=== PATIENT | male | born 1990 | race Two or more races ===

== ENCOUNTER 2016-07-17 15:00 | Emergency (ER) | payer BC ==
[2016-07-17 15:05] VITALS: BP 125/70
--- NOTE | 2016-07-17 15:05 | ER Document Report ---
ED Medical Screen (RME) - General Stated Complaint: SUTURE REMOVAL Notes: pt here for suture removal to right upper lip TRAVEL OUTSIDE OF THE [place] IN LAST 30 DAYS: No - Related Data Allergies/Adverse Reactions: No Known Allergies Allergy (Verified 07/17/16 15:03) Past Medical History Psychiatric Medical History: Reports: Hx Depression Past Surgical History: Reports: Hx Orthopedic Surgery - Immunizations Hx Diphtheria, Pertussis, Tetanus Vaccination: Yes Physical Exam - Skin Skin irregularity: Laceration - sutured lac to right upper lip
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
== END 2016-07-17 15:29 | disposition home or self-care (01) ==
LOC: ER 15:00
DX: Z48.02 Encounter for removal of sutures (principal)

== ENCOUNTER 2016-07-20 18:35 | Inpatient (IN) | payer OTHER, BC ==
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
[2016-07-20 20:21] LABS: ABSOLUTE EOSINOPHILS # (AUTO) 0.1 10^3/uL (0.0-0.6); ABSOLUTE LYMPHOCYTES (AUTO) 2.2 10^3/uL (0.5-4.7); ABSOLUTE MONOCYTES (AUTO) 0.8 10^3/uL (0.1-1.4); ABSOLUTE NEUT (AUTO) 13.2 10^3/uL (1.7-8.2); BASOPHILS % (AUTO) 0.1 % (0-2); EOSINOPHILS % (AUTO) 0.4 % (0-6); HEMOGLOBIN 13.8 g/dL (13.5-17.0); HGB HCT DIFFERENCE -0.6; LYMPHOCYTES % (AUTO) 13.4 % (13-45); MEAN CORPUSCULAR HEMOGLOBIN 29.4 pg (27.0-33.4); MEAN CORPUSCULAR VOLUME 89 fl (80-97); MONOCYTES % (AUTO) 4.8 % (3-13); RED CELL DISTRIBUTION WIDTH 14.4 % (11.5-14.0); SEGMENTED NEUTROPHILS % (AUTO) 81.3 % (42-78); WHITE BLOOD COUNT 16.2 10^3/uL (4.0-10.5)
[2016-07-20 20:56] LABS: ALCOHOL 174 mg/dL (NONE DETECTED); ANION GAP 14 (5-19); BLOOD UREA NITROGEN 10 mg/dL (7-20); CALCIUM 9.3 mg/dL (8.4-10.2); CARBON DIOXIDE 27 mmol/L (22-30); CHLORIDE 106 mmol/L (98-107); CREATININE RESULT 1.04 mg/dL (0.52-1.25); GLUCOSE 111 mg/dL (75-110); POTASSIUM 3.8 mmol/L (3.6-5.0); SODIUM 146.5 mmol/L (137-145)
[2016-07-20 21:14] LABS: APPEARANCE,URINE SLIGHTLY-CLOUDY; BILIRUBIN,URINE NEGATIVE (NEGATIVE); GLUCOSE, URINE NEGATIVE (NEGATIVE); KETONES,URINE NEGATIVE (NEGATIVE); LEUKOCYTE ESTERASE,URINE TRACE (NEGATIVE); NITRITE,URINE NEGATIVE (NEGATIVE); PROTEIN,URINE 100 mg/dL (NEGATIVE); UROBILINOGEN,URINE NEGATIVE mg/dL (<2.0)
[2016-07-20 21:15] LABS: URINE SPECIFIC GRAVITY > 1.060
[2016-07-20 21:27] LABS: URINE BARBITURATES SCREEN NEGATIVE; URINE METHADONE SCREEN NEGATIVE; URINE PHENCYCLIDINE SCREEN NEGATIVE
[2016-07-20] MEDS ORDERED: MORPHINE SULFATE 10 MG/ML INJ ONE (21:27)
[2016-07-20] MEDS ORDERED: ONDANSETRON HCL INJ/PF 4 MG/2 ML SDV ONE (21:28)
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
[2016-07-20] MEDS ORDERED: ONDANSETRON HCL INJ/PF 4 MG/2 ML SDV IV PRN (23:00)
[2016-07-20] MEDS ORDERED: RINGERS SOLUTION,LACTATED 1,000 ML IV ONE (23:05)
[2016-07-20] MEDS ORDERED: NORMAL SALINE 1000 ML 1,000 ML IV ONE (23:50)
[2016-07-21] MEDS: MORPHINE SULFATE 10 MG/ML INJ IV PRN ×6 (01:53→21:43)
[2016-07-21] MEDS: POTASSI CL 20 MEQ/D5-1/2NS 1L 1,000 ML IV PRN (05:45)
[2016-07-21] MEDS: ENOXAPARIN SODIUM INJ 40 MG/0.4 ML DISP.SYRIN SUBCUT SCH (07:38)
[2016-07-21 07:48] LABS: ANION GAP 13 (5-19); BLOOD UREA NITROGEN 13 mg/dL (7-20); CALCIUM 8.4 mg/dL (8.4-10.2); CARBON DIOXIDE 23 mmol/L (22-30); CHLORIDE 109 mmol/L (98-107); CREATININE RESULT 0.95 mg/dL (0.52-1.25); MAGNESIUM 1.4 mg/dL (1.6-2.3); PHOSPHORUS 4.3 mg/dL (2.5-4.5); POTASSIUM 4.3 mmol/L (3.6-5.0); SODIUM 144.7 mmol/L (137-145)
[2016-07-21 08:05] LABS: GLUCOSE 89 mg/dL (75-110)
[2016-07-21 08:09] LABS: HEMATOCRIT 36.4 % (37.9-51.0); HEMOGLOBIN 12.3 g/dL (13.5-17.0); HGB HCT DIFFERENCE 0.5; MEAN CORPUSCULAR HEMOGLOBIN 29.6 pg (27.0-33.4); MEAN CORPUSCULAR HGB CONC 33.8 g/dL (32.0-36.0); MEAN CORPUSCULAR VOLUME 88 fl (80-97); RED BLOOD COUNT 4.16 10^6/uL (4.35-5.55); RED CELL DISTRIBUTION WIDTH 14.5 % (11.5-14.0); WHITE BLOOD COUNT 16.8 10^3/uL (4.0-10.5)
[2016-07-21] MEDS: DOCUSATE SODIUM 100 MG CAPSULE PO SCH ×2 (09:01→17:19)
[2016-07-21] MEDS: OXYCODONE-ACETAMINOPHEN 5-325 MG TABLET PO PRN ×2 (11:21→17:19)
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
[2016-07-21] MEDS ORDERED: DIPHENHYDRAMINE HCL 25 MG CAPSULE PO PRN (17:01)
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
[2016-07-22] MEDS: POTASSI CL 20 MEQ/D5-1/2NS 1L 1,000 ML IV PRN (00:12)
[2016-07-22] MEDS: OXYCODONE-ACETAMINOPHEN 5-325 MG TABLET PO PRN ×4 (00:15→20:21)
[2016-07-22] MEDS: MORPHINE SULFATE 10 MG/ML INJ IV PRN ×3 (01:58→22:59)
--- NOTE | 2016-07-22 07:23 | PDOC PROGRESS REPORT ---
Subjective Progress Note for:: 07/22/16 Subjective:: Patient seen and evaluated this morning. No issues overnight. Continues to complain of left ankle pain and thumb pain. Physical Exam Vital Signs: Temp Pulse Resp BP Pulse Ox 100.0 F 107 H 18 131/60 H 93 07/22/16 00:32 07/22/16 02:00 07/22/16 00:32 07/22/16 00:32 07/22/16 00:32 Intake & Output 07/21/16 07/22/16 07/23/16 06:59 06:59 06:59 Intake Total 2575 Output Total 1800 Balance 775 Weight 80.9 kg 80.3 kg Musculoskeletal exam: PRESENT: other - Left thumb: Tenderness to palpation along the thumb CMC joint. Intact flexion extension of the IP joint. No sensory deficits. Left ankle: Notable swelling. Tenderness along the medial and lateral malleolus. Intact plantar flexion/dorsiflexion. No sensory deficits. Pelvis: Tenderness along the pubic symphysis along the coccyx. Pain with attempted straight leg raise. Bilateral lower extremities demonstrate no sensory deficits. Intact plantar flexion/dorsiflexion. Results Laboratory Results: 07/21/16 05:56 07/21/16 05:56 07/21/16 07/21/16 05:56 05:56 WBC 16.8 H RBC 4.16 L Hgb 12.3 L Hct 36.4 L MCV 88 MCH 29.6 MCHC 33.8 RDW 14.5 H Plt Count 168 Sodium 144.7 Potassium 4.3 Chloride 109 H Carbon Dioxide 23 Anion Gap 13 BUN 13 Creatinine 0.95 Est GFR ( Amer) > 60 Est GFR (Non-Af Amer) > 60 Glucose 89 Calcium 8.4 Phosphorus 4.3 Magnesium 1.4 L Impressions: Abdomen/Pelvis CT 07/20/16 18:40 IMPRESSION: There is soft tissue fullness in the presacral space most consistent with a hematoma. No bladder abnormalities are identified. A fracture of the coccyx is identified. A fracture involving the inferior pubic ramus on the right is identified. No other significant posttraumatic changes are identified. Other findings as noted above. Cervical Spine CT 07/20/16 18:40 IMPRESSION: NO ACUTE OR SIGNIFICANT FINDINGS IN THE CERVICAL SPINE. Chest CT 07/20/16 18:40 IMPRESSION: No significant intrathoracic posttraumatic changes are identified. Findings as noted above Chest X-Ray 07/20/16 18:40 IMPRESSION: NO ACUTE RADIOGRAPHIC FINDING IN THE CHEST. Head CT 07/20/16 18:40 IMPRESSION: No significant intracranial abnormalities were identified. A right frontal and right periorbital hematoma is identified. Other findings as noted above Pelvis X-Ray 07/20/16 18:41 IMPRESSION: Fracture of the inferior pubic ramus on the right is identified. No other evidence for fracture is seen Facial Bones CT 07/20/16 19:12 IMPRESSION: No evidence for fracture is seen. Paranasal sinuses are well- aerated without air-fluid levels. A right frontal and right periorbital hematoma is identified. Ankle X-Ray 07/21/16 00:00 IMPRESSION: Bimalleolar fracture is noted above Wrist X-Ray 07/21/16 00:00 IMPRESSION: Fracture of the proximal 1st metacarpal Assessment & Plan - Diagnosis (1) Smith's fracture of base of metacarpal bone of left thumb Qualifiers: Encounter type: initial encounter Fracture type: closed Qualified Code(s): S62.212A - Smith's fracture, left hand, initial encounter for closed fracture Is this a current diagnosis for this admission?: Yes (2) Bimalleolar ankle fracture Qualifiers: Encounter type: initial encounter Fracture type: closed Laterality : left Qualified Code(s): S82.842A - Displaced bimalleolar fracture of left lower leg, initial encounter for closed fracture Is this a current diagnosis for this admission?: YesPlan: Patient will be set up today for operative intervention of his left ankle which includes open reduction internal fixation. Patient will likely be set up for definitive treatment of his left thumb on an outpatient basis and will be stable for discharge tomorrow after operative fixation. We have discussed with the patient the alternatives for further care of this condition. They desire to proceed with surgical intervention. I explained to them the nature of the operation to be performed and the expected postoperative course. The possibility of complications is explained and these could involve anesthetic complications, excessive bleeding, infection, injury to surrounding nerves, vessels and tendons, bruising, healing difficulties, scar formation, posttraumatic arthritis and failure to relieve symptoms. The patient expresses the desire to proceed with the operation. (3) Fracture of right inferior pubic ramus Qualifiers: Encounter type: initial encounter Fracture type: closed Qualified Code(s): S32.591A - Other specified fracture of right pubis, initial encounter for closed fracture Is this a current diagnosis for this admission?: Yes (4) Fractured coccyx Qualifiers: Encounter type: initial encounter Fracture type: closed Qualified Code(s): S32.2XXA - Fracture of coccyx, initial encounter for closed fracture Is this a current diagnosis for this admission?: Yes
[2016-07-22] MEDS: ENOXAPARIN SODIUM INJ 40 MG/0.4 ML DISP.SYRIN SUBCUT SCH (07:32)
[2016-07-22] MEDS: DOCUSATE SODIUM 100 MG CAPSULE PO SCH ×2 (09:15→17:17)
--- NOTE | 2016-07-22 10:36 | PDOC PROGRESS REPORT ---
Subjective Progress Note for:: 07/22/16 Subjective:: Pain around the tailbone region and the pelvic pain as well as the left ankle and the left hand pain. No shortness of breath. No abdominal pain other than the pain in his pelvis. No neck pain. Physical Exam Vital Signs: Temp Pulse Resp BP Pulse Ox 100.7 F H 104 H 18 123/59 L 92 07/22/16 07:51 07/22/16 07:51 07/22/16 07:51 07/22/16 07:51 07/22/16 07:51 Intake & Output 07/21/16 07/22/16 07/23/16 06:59 06:59 06:59 Intake Total 2575 Output Total 1800 Balance 775 Weight 80.9 kg 80.3 kg General appearance: PRESENT: no acute distress Head exam: PRESENT: other - Right periorbital bruising and swelling. No step- off. Tender. Visual acuity in the right eye intact with extraocular movements intact. Pupil equal and reactive. Conjunctiva injection. Neck exam: PRESENT: other - Supple, good range of motion with no tenderness no swelling no step-off. Respiratory exam: PRESENT: chest wall tenderness, other - Sternum stable. Cardiovascular exam: PRESENT: RRR GI/Abdominal exam: PRESENT: other - Soft nondistended nontender to palpation in the mid and upper abdomen tenderness mild in the suprapubic region likely referred from his the pelvic fractures. Extremities exam: PRESENT: other - Left ankle in a splint as is his the left the lower arm. Other than the minor abrasions no evidence of trauma to the right upper and lower extremities. Musculoskeletal exam: PRESENT: other - Multiple abrasions on his back with tenderness at his sacral region no step-off nor swelling along his spine. Neurological exam: PRESENT: oriented to person, oriented to place, oriented to situation Psychiatric exam: PRESENT: appropriate affect - Patient denies any suicidal ideations at this time. He is a alert and appropriate. Results Laboratory Results: 07/21/16 05:56 07/21/16 05:56 Impressions: Abdomen/Pelvis CT 07/20/16 18:40 IMPRESSION: There is soft tissue fullness in the presacral space most consistent with a hematoma. No bladder abnormalities are identified. A fracture of the coccyx is identified. A fracture involving the inferior pubic ramus on the right is identified. No other significant posttraumatic changes are identified. Other findings as noted above. Cervical Spine CT 07/20/16 18:40 IMPRESSION: NO ACUTE OR SIGNIFICANT FINDINGS IN THE CERVICAL SPINE. Chest CT 07/20/16 18:40 IMPRESSION: No significant intrathoracic posttraumatic changes are identified. Findings as noted above Chest X-Ray 07/20/16 18:40 IMPRESSION: NO ACUTE RADIOGRAPHIC FINDING IN THE CHEST. Head CT 07/20/16 18:40 IMPRESSION: No significant intracranial abnormalities were identified. A right frontal and right periorbital hematoma is identified. Other findings as noted above Pelvis X-Ray 07/20/16 18:41 IMPRESSION: Fracture of the inferior pubic ramus on the right is identified. No other evidence for fracture is seen Facial Bones CT 07/20/16 19:12 IMPRESSION: No evidence for fracture is seen. Paranasal sinuses are well- aerated without air-fluid levels. A right frontal and right periorbital hematoma is identified. Ankle X-Ray 07/21/16 00:00 IMPRESSION: Bimalleolar fracture is noted above Wrist X-Ray 07/21/16 00:00 IMPRESSION: Fracture of the proximal 1st metacarpal Assessment & Plan - Diagnosis (1) Trauma Is this a current diagnosis for this admission?: YesPlan: Status post multiple orthopedic injuries. Pending left ankle surgery today. Will likely require left hand surgery in the future. Pubic the ramus and a coccygeal fracture will be managed nonoperatively. No evidence of significant the thoracoabdominal injuries. No evidence of intracranial injury but patient has had the periorbital hematoma. Will obtain the ophthalmology consultation today. Await psychiatry input. We'll not discharge the patient home until cleared by psychiatry.
[2016-07-22] MEDS ORDERED: FENTANYL CITRATE INJ/PF 250 MCG/5 ML AMPULE ONE (10:52)
[2016-07-22] MEDS ORDERED: DEXMEDETOMIDINE INJ 80 MCG/20 ML VIAL IV ONE (10:53)
[2016-07-22] MEDS ORDERED: MIDAZOLAM 2 MG/2 ML INJ ONE (10:53)
[2016-07-22] MEDS ORDERED: HYDROMORPHONE HCL INJ/PF 2 MG/ML AMPULE ONE (10:53)
[2016-07-22] MEDS ORDERED: PROPOFOL INJ 200 MG/20 ML VIAL IV ONE (10:53)
[2016-07-22] MEDS ORDERED: METOCLOPRAMIDE HCL INJ/PF 10 MG/2 ML SDV ONE (11:02)
[2016-07-22] MEDS ORDERED: ONDANSETRON HCL INJ/PF 4 MG/2 ML SDV ONE (11:02)
[2016-07-22] MEDS ORDERED: DEXAMETHASONE SOD PHOSPHATE INJ 4 MG/1 ML VIAL ONE (11:02)
[2016-07-22] MEDS ORDERED: SUCCINYLCHOLINE CHLORIDE INJ 200 MG/10 ML VIAL ONE (11:02)
[2016-07-22] MEDS ORDERED: LIDOCAINE 2% INJ-PF (20 MG/ML) 10 ML AMPUL ONE (11:02)
[2016-07-22] MEDS ORDERED: BUPIVACAINE HCL 0.5 % INJ/PF 30 ML SDV ONE (11:14)
[2016-07-22] MEDS ORDERED: CEFAZOLIN INJ 1 GM VIAL ONE (11:56)
[2016-07-22] MEDS ORDERED: PROMETHAZINE HCL INJ 25 MG/1 ML VIAL IV PRN ×4 (12:18→13:44)
[2016-07-22] MEDS ORDERED: MORPHINE SULFATE 10 MG/ML INJ IV PRN ×2 (12:18→13:44)
[2016-07-22] MEDS ORDERED: DIPHENHYDRAMINE HCL 50 MG/ML VIAL IV PRN ×2 (12:18→13:44)
[2016-07-22] MEDS ORDERED: OXYCODONE-ACETAMINOPHEN 5-325 MG TABLET PO PRN ×4 (12:18→13:44)
[2016-07-22] MEDS ORDERED: FENTANYL CITRATE INJ/PF 100 MCG/2 ML AMPUL IV PRN ×6 (12:18→13:44)
[2016-07-22] MEDS ORDERED: ONDANSETRON HCL INJ/PF 4 MG/2 ML SDV IV PRN (12:18)
[2016-07-22] MEDS ORDERED: MEPERIDINE HCL/PF INJ 25 MG/1 ML DISP.SYRIN IV PRN ×2 (12:18→13:44)
--- NOTE | 2016-07-22 12:51 | Operative Report ---
Operative Report DATE OF SURGERY: 07/22/16 PREOPERATIVE DIAGNOSIS: Left bimalleolar ankle fracture. Left lateral on the fracture OPERATION: Open reduction internal fixation of left bimalleolar ankle fracture. Closed reduction percutaneous fixation of left Saurabh fracture SURGEON: MATHIEU COLINDRES ANESTHESIA: GA PROCEDURE: With the patient supine operative table. Both the left upper extremity. Left lower extremity are prepped and draped in sterile fashion. The left lower extremity is elevated and tourniquet inflated 280 torr. A longitudinal incision was made over the lateral fibula and sharp dissection is carried incision down to the fibula and the underlying fracture. The periosteum was elevated. The fractures reduced using a dental pick anatomically. A 6-hole stainless steel one third tubular plate is fashioned into a plate and secured with 4 screws. Fluoroscopy used to assess fracture reduction as well as hardware placement. Both were felt to be adequate. Attention was next turned to the medial malleolus. A longitudinal incision was made over the medial malleolus. The underlying fracture identified. Its reduced anatomically. It secured in place using 245 cannulated screws. At this point the tourniquet to left lower extremity was deflated. The wounds irrigated. Hemostasis obtained with electrocautery. The wound is then closed using interrupted Vicryl followed by fortino. A sterile compressive dressing was applied and attention is turned to the left upper extremity. Under fluoroscopic guidance a near anatomic reduction of the Saurabh fracture is obtained. A single for a 4.5 K wire is advanced percutaneously through the lateral metacarpal cortex and proximally and medially across the medial aspect of the fracture. The fracture reduction and pin placement are checked fluoroscopically and felt to be adequate. At this point both wounds were dressed with sterile compressive dressings followed by plaster splints. The patient was then returned to the PACU in satisfactory condition.
[2016-07-22] MEDS ORDERED: RINGERS SOLUTION,LACTATED 1,000 ML IV PRN (13:06)
[2016-07-22] MEDS ORDERED: FENTANYL CITRATE INJ/PF 100 MCG/2 ML AMPUL ONE (13:21)
[2016-07-22] MEDS ORDERED: CEFAZOLIN SODIUM 2 GM in DEXTROSE 5%-WATER 100 ML IV SCH (20:00)
[2016-07-22] MEDS: CEFAZOLIN 2 GM/D5W RTU 2 GM/50 ML RTUPB IV SCH (20:21)
[2016-07-23] MEDS: CEFAZOLIN 2 GM/D5W RTU 2 GM/50 ML RTUPB IV SCH ×2 (04:12→20:10)
[2016-07-23] MEDS: OXYCODONE-ACETAMINOPHEN 5-325 MG TABLET PO PRN ×3 (05:02→20:10)
--- NOTE | 2016-07-23 07:04 | PDOC PROGRESS REPORT ---
Subjective Progress Note for:: 07/23/16 Subjective:: Patient expressing concerns about defecation the face of a coccyx fracture Physical Exam Vital Signs: Temp Pulse Resp BP Pulse Ox 36.7 C 85 19 138/57 H 96 07/23/16 03:44 07/23/16 03:44 07/23/16 03:44 07/23/16 03:44 07/23/16 03:44 Intake & Output 07/22/16 07/23/16 07/24/16 06:59 06:59 06:59 Intake Total 2620 Output Total 2110 Balance 510 Weight 80.3 kg General appearance: PRESENT: no acute distress Head exam: PRESENT: normocephalic Eye exam: PRESENT: EOMI Respiratory exam: PRESENT: unlabored Cardiovascular exam: PRESENT: RRR Pulses: PRESENT: +1 pedal pulses bilateral Vascular exam: PRESENT: normal capillary refill Extremities exam: PRESENT: other - Left upper extremity dressing clean dry and intact. This brisk capillary refill to the subungual region of the left thumbnail and sensation is intact over his radial aspect. Left lower extremity is immobilized in posterior splint. Likewise this brisk capillary refill with intact sensation. Neurological exam: PRESENT: alert, awake, oriented to person, oriented to place , oriented to time, oriented to situation Results Impressions: Abdomen/Pelvis CT 07/20/16 18:40 IMPRESSION: There is soft tissue fullness in the presacral space most consistent with a hematoma. No bladder abnormalities are identified. A fracture of the coccyx is identified. A fracture involving the inferior pubic ramus on the right is identified. No other significant posttraumatic changes are identified. Other findings as noted above. Cervical Spine CT 07/20/16 18:40 IMPRESSION: NO ACUTE OR SIGNIFICANT FINDINGS IN THE CERVICAL SPINE. Chest CT 07/20/16 18:40 IMPRESSION: No significant intrathoracic posttraumatic changes are identified. Findings as noted above Chest X-Ray 07/20/16 18:40 IMPRESSION: NO ACUTE RADIOGRAPHIC FINDING IN THE CHEST. Head CT 07/20/16 18:40 IMPRESSION: No significant intracranial abnormalities were identified. A right frontal and right periorbital hematoma is identified. Other findings as noted above Pelvis X-Ray 07/20/16 18:41 IMPRESSION: Fracture of the inferior pubic ramus on the right is identified. No other evidence for fracture is seen Facial Bones CT 07/20/16 19:12 IMPRESSION: No evidence for fracture is seen. Paranasal sinuses are well- aerated without air-fluid levels. A right frontal and right periorbital hematoma is identified. Wrist X-Ray 07/21/16 00:00 IMPRESSION: Fracture of the proximal 1st metacarpal Ankle X-Ray 07/22/16 00:00 IMPRESSION: IMAGE(S) OBTAINED DURING PROCEDURE. Finger X-Ray 07/22/16 00:00 IMPRESSION: IMAGE(S) OBTAINED DURING PROCEDURE. Fluoroscopy 07/22/16 00:00 IMPRESSION: IMAGE(S) OBTAINED DURING PROCEDURE. Status: Imported from PACS Assessment & Plan - Diagnosis (1) Saurabh fracture of left hand Is this a current diagnosis for this admission?: YesPlan: Patient status post close reduction percutaneous pinning. He is now in a plaster splint for mobilization. (2) Bimalleolar ankle fracture Qualifiers: Encounter type: initial encounter Fracture type: closed Laterality : left Qualified Code(s): S82.842A - Displaced bimalleolar fracture of left lower leg, initial encounter for closed fracture Is this a current diagnosis for this admission?: YesPlan: Patient status post open reduction internal fixation of left bimalleolar ankle fracture. Plan will be for mobilization with physical therapy on a touchdown weightbearing restriction (3) Fractured coccyx Qualifiers: Encounter type: initial encounter Fracture type: closed Qualified Code(s): S32.2XXA - Fracture of coccyx, initial encounter for closed fracture Is this a current diagnosis for this admission?: YesPlan: Patient with a coccyx fracture. Some concern about defecation the face a coccyx fracture and potential pain. Stool softener may be appropriate. No other treatment is needed for this. - Time Time Spent with patient: 15-24 minutes Anticipated discharge: Home with Homehealth Within: within 24 hours - Inpatient Certification Based on my medical assessment, after consideration of the patient's comorbidities, presenting symptoms, or acuity I expect that the services needed warrant INPATIENT care.: Yes I certify that my determination is in accordance with my understanding of Medicare's requirements for reasonable and necessary INPATIENT services [42 CFR 412.3e].: Yes
[2016-07-23] MEDS: ENOXAPARIN SODIUM INJ 40 MG/0.4 ML DISP.SYRIN SUBCUT SCH (10:21)
[2016-07-23] MEDS: MORPHINE SULFATE 10 MG/ML INJ IV PRN (10:21)
[2016-07-23] MEDS: DOCUSATE SODIUM 100 MG CAPSULE PO SCH ×2 (10:21→18:12)
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
[2016-07-23] MEDS ORDERED: ZIPRASIDONE HCL 20 MG CAPSULE PO PRN (14:28)
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
[2016-07-23] MEDS: OLANZAPINE 5 MG TABLET PO SCH (21:41)
[2016-07-23] MEDS: DIVALPROEX SODIUM 250 MG TABLET.DR PO SCH (21:41)
[2016-07-23] MEDS: BENZTROPINE MESYLATE 1 MG TABLET PO SCH (21:42)
[2016-07-24] MEDS: CEFAZOLIN 2 GM/D5W RTU 2 GM/50 ML RTUPB IV SCH ×2 (04:21→20:50)
[2016-07-24] MEDS: OXYCODONE-ACETAMINOPHEN 5-325 MG TABLET PO PRN ×2 (05:36→15:50)
[2016-07-24] MEDS: ENOXAPARIN SODIUM INJ 40 MG/0.4 ML DISP.SYRIN SUBCUT SCH (07:57)
[2016-07-24] MEDS: DIVALPROEX SODIUM 250 MG TABLET.DR PO SCH ×2 (09:39→22:00)
[2016-07-24] MEDS: MORPHINE SULFATE 10 MG/ML INJ IV PRN ×2 (09:39→20:12)
[2016-07-24] MEDS: DOCUSATE SODIUM 100 MG CAPSULE PO SCH ×2 (09:39→17:19)
[2016-07-24] MEDS: OLANZAPINE 5 MG TABLET PO SCH ×2 (09:39→22:00)
--- NOTE | 2016-07-24 14:06 | PDOC PROGRESS REPORT ---
Subjective Progress Note for:: 07/24/16 Subjective:: Patient seen and evaluated. Major area of discomfort is along the coccyx fracture with defecation. Pain controlled of the left hand and left ankle. Physical Exam Vital Signs: Temp Pulse Resp BP Pulse Ox 97.8 F 75 15 120/59 L 98 07/24/16 08:00 07/24/16 08:00 07/24/16 08:00 07/24/16 08:00 07/24/16 08:00 Intake & Output 07/23/16 07/24/16 07/25/16 06:59 06:59 06:59 Intake Total 2620 1240 Output Total 2110 2650 Balance 510 -1410 Weight 80.3 kg 85.7 kg General appearance: PRESENT: no acute distress Musculoskeletal exam: PRESENT: other - Left hand: Splint clean/dry/intact. Intact flexion extension of the index through small finger. Cap refill less than 2 seconds. No sensory deficits. Left ankle: Splint clean/dry/intact, intact flexion extension of the toes. Passive stretch. Cap refill less than 2 seconds. No sensory deficits. Results Impressions: Abdomen/Pelvis CT 07/20/16 18:40 IMPRESSION: There is soft tissue fullness in the presacral space most consistent with a hematoma. No bladder abnormalities are identified. A fracture of the coccyx is identified. A fracture involving the inferior pubic ramus on the right is identified. No other significant posttraumatic changes are identified. Other findings as noted above. Cervical Spine CT 07/20/16 18:40 IMPRESSION: NO ACUTE OR SIGNIFICANT FINDINGS IN THE CERVICAL SPINE. Chest CT 07/20/16 18:40 IMPRESSION: No significant intrathoracic posttraumatic changes are identified. Findings as noted above Chest X-Ray 07/20/16 18:40 IMPRESSION: NO ACUTE RADIOGRAPHIC FINDING IN THE CHEST. Head CT 07/20/16 18:40 IMPRESSION: No significant intracranial abnormalities were identified. A right frontal and right periorbital hematoma is identified. Other findings as noted above Pelvis X-Ray 07/20/16 18:41 IMPRESSION: Fracture of the inferior pubic ramus on the right is identified. No other evidence for fracture is seen Facial Bones CT 07/20/16 19:12 IMPRESSION: No evidence for fracture is seen. Paranasal sinuses are well- aerated without air-fluid levels. A right frontal and right periorbital hematoma is identified. Wrist X-Ray 07/21/16 00:00 IMPRESSION: Fracture of the proximal 1st metacarpal Ankle X-Ray 07/22/16 00:00 IMPRESSION: IMAGE(S) OBTAINED DURING PROCEDURE. Finger X-Ray 07/22/16 00:00 IMPRESSION: IMAGE(S) OBTAINED DURING PROCEDURE. Fluoroscopy 07/22/16 00:00 IMPRESSION: IMAGE(S) OBTAINED DURING PROCEDURE. Assessment & Plan - Diagnosis (1) Smith's fracture of base of metacarpal bone of left thumb Qualifiers: Encounter type: initial encounter Fracture type: closed Qualified Code(s): S62.212A - Smith's fracture, left hand, initial encounter for closed fracture Is this a current diagnosis for this admission?: YesPlan: Patient currently in splint he will continue until follow-up. (2) Bimalleolar ankle fracture Qualifiers: Encounter type: initial encounter Fracture type: closed Laterality : left Qualified Code(s): S82.842A - Displaced bimalleolar fracture of left lower leg, initial encounter for closed fracture Is this a current diagnosis for this admission?: YesPlan: Nonweightbearing left lower extremity. Continue splint. Continue ice and elevation. (3) Fracture of right inferior pubic ramus Qualifiers: Encounter type: initial encounter Fracture type: closed Qualified Code(s): S32.591A - Other specified fracture of right pubis, initial encounter for closed fracture Is this a current diagnosis for this admission?: Yes (4) Fractured coccyx Qualifiers: Encounter type: initial encounter Fracture type: closed Qualified Code(s): S32.2XXA - Fracture of coccyx, initial encounter for closed fracture Is this a current diagnosis for this admission?: YesPlan: No operative treatment required. Continue stool softener for comfort during defecation. - Plan Summary Plan Summary: Patient was stable for discharge once cleared by surgery and psych.
[2016-07-24] MEDS ORDERED: BISACODYL 5 MG TABEC PO ONE (17:30)
[2016-07-24] MEDS ORDERED: BISACODYL 10 MG SUPP.RECT PR ONE (18:00)
[2016-07-24] MEDS: BENZTROPINE MESYLATE 1 MG TABLET PO SCH (21:59)
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
[2016-07-25] MEDS: CEFAZOLIN 2 GM/D5W RTU 2 GM/50 ML RTUPB IV SCH (04:46)
[2016-07-25] MEDS: OXYCODONE-ACETAMINOPHEN 5-325 MG TABLET PO PRN ×3 (05:53→19:45)
[2016-07-25] MEDS: ENOXAPARIN SODIUM INJ 40 MG/0.4 ML DISP.SYRIN SUBCUT SCH (07:29)
[2016-07-25] MEDS: MORPHINE SULFATE 10 MG/ML INJ IV PRN ×3 (09:02→23:02)
[2016-07-25] MEDS: DOCUSATE SODIUM 100 MG CAPSULE PO SCH ×2 (09:10→18:30)
[2016-07-25] MEDS: OLANZAPINE 5 MG TABLET PO SCH ×2 (09:10→22:49)
[2016-07-25] MEDS: DIVALPROEX SODIUM 250 MG TABLET.DR PO SCH ×2 (09:10→22:48)
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
[2016-07-25] MEDS ORDERED: NICOTINE 21 MG/24 HR PATCH.TD24 TD PRN (16:47)
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
[2016-07-25] MEDS: BENZTROPINE MESYLATE 1 MG TABLET PO SCH (22:48)
[2016-07-26] MEDS: OXYCODONE-ACETAMINOPHEN 5-325 MG TABLET PO PRN ×2 (04:34→16:54)
[2016-07-26] MEDS: DOCUSATE SODIUM 100 MG CAPSULE PO SCH ×2 (10:29→18:42)
[2016-07-26] MEDS: DIVALPROEX SODIUM 250 MG TABLET.DR PO SCH ×2 (10:29→22:04)
[2016-07-26] MEDS: OLANZAPINE 5 MG TABLET PO SCH ×2 (10:29→22:04)
[2016-07-26] MEDS: ENOXAPARIN SODIUM INJ 40 MG/0.4 ML DISP.SYRIN SUBCUT SCH (10:30)
--- NOTE | 2016-07-26 11:33 | PDOC PROGRESS REPORT ---
Subjective Progress Note for:: 07/26/16 Subjective:: Patient has no complaints today. Patient apparently walk with physical therapy down the [place] . Physical Exam Vital Signs: Temp Pulse Resp BP Pulse Ox 97.8 F 82 14 129/68 H 99 07/26/16 08:00 07/26/16 08:00 07/26/16 08:00 07/26/16 08:00 07/26/16 08:00 Intake & Output 07/25/16 07/26/16 07/27/16 06:59 06:59 06:59 Intake Total 3455 1692 Output Total 1050 1860 Balance 2405 -168 Weight 86.2 kg 86.3 kg General appearance: PRESENT: no acute distress GI/Abdominal exam: PRESENT: other - No focal abdominal tenderness; Musculoskeletal exam: PRESENT: other - 1. Left thumb and splint; left ankle dressing intact. Results Impressions: Abdomen/Pelvis CT 07/20/16 18:40 IMPRESSION: There is soft tissue fullness in the presacral space most consistent with a hematoma. No bladder abnormalities are identified. A fracture of the coccyx is identified. A fracture involving the inferior pubic ramus on the right is identified. No other significant posttraumatic changes are identified. Other findings as noted above. Cervical Spine CT 07/20/16 18:40 IMPRESSION: NO ACUTE OR SIGNIFICANT FINDINGS IN THE CERVICAL SPINE. Chest CT 07/20/16 18:40 IMPRESSION: No significant intrathoracic posttraumatic changes are identified. Findings as noted above Chest X-Ray 07/20/16 18:40 IMPRESSION: NO ACUTE RADIOGRAPHIC FINDING IN THE CHEST. Head CT 07/20/16 18:40 IMPRESSION: No significant intracranial abnormalities were identified. A right frontal and right periorbital hematoma is identified. Other findings as noted above Pelvis X-Ray 07/20/16 18:41 IMPRESSION: Fracture of the inferior pubic ramus on the right is identified. No other evidence for fracture is seen Facial Bones CT 07/20/16 19:12 IMPRESSION: No evidence for fracture is seen. Paranasal sinuses are well- aerated without air-fluid levels. A right frontal and right periorbital hematoma is identified. Wrist X-Ray 07/21/16 00:00 IMPRESSION: Fracture of the proximal 1st metacarpal Ankle X-Ray 07/22/16 00:00 IMPRESSION: IMAGE(S) OBTAINED DURING PROCEDURE. Finger X-Ray 07/22/16 00:00 IMPRESSION: IMAGE(S) OBTAINED DURING PROCEDURE. Fluoroscopy 07/22/16 00:00 IMPRESSION: IMAGE(S) OBTAINED DURING PROCEDURE. Assessment & Plan - Diagnosis (1) Intentional self-harm by jumping or lying in front of other moving object, initial encounter Is this a current diagnosis for this admission?: YesPlan: Patient making satisfactory progress with no evidence of acute deterioration; patient ambulating now with physical therapy. Pain appears controlled; patient had a bowel movement. He is tolerating regular diet. Discharge planning was involved; apparently patient lives solidity requiring short flight of steps ; we're investigating the role of a ramp being constructed for safe access . - Time Time Spent with patient: 15-24 minutes
[2016-07-26] MEDS: BENZTROPINE MESYLATE 1 MG TABLET PO SCH (22:03)
[2016-07-26] MEDS: MORPHINE SULFATE 10 MG/ML INJ IV PRN (22:09)
[2016-07-27] MEDS: OXYCODONE-ACETAMINOPHEN 5-325 MG TABLET PO PRN ×2 (03:34→17:31)
[2016-07-27] MEDS: MORPHINE SULFATE 10 MG/ML INJ IV PRN (08:45)
[2016-07-27] MEDS: DOCUSATE SODIUM 100 MG CAPSULE PO SCH ×2 (09:39→17:32)
[2016-07-27] MEDS: OLANZAPINE 5 MG TABLET PO SCH ×2 (09:39→22:25)
[2016-07-27] MEDS: DIVALPROEX SODIUM 250 MG TABLET.DR PO SCH ×2 (09:40→22:24)
[2016-07-27] MEDS: ENOXAPARIN SODIUM INJ 40 MG/0.4 ML DISP.SYRIN SUBCUT SCH (09:40)
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
--- NOTE | 2016-07-27 17:05 | PDOC PROGRESS REPORT ---
Subjective Progress Note for:: 07/27/16 Subjective:: Feels well. No complaints. Denies any suicidal ideations nor intent to harm himself. Physical Exam Vital Signs: Temp Pulse Resp BP Pulse Ox 98.6 F 98 16 134/66 H 98 07/27/16 15:03 07/27/16 15:03 07/27/16 15:03 07/27/16 15:03 07/27/16 15:03 Intake & Output 07/26/16 07/27/16 07/28/16 06:59 06:59 06:59 Intake Total 1692 1440 Output Total 1860 1050 Balance -168 390 Weight 86.3 kg 86.3 kg General appearance: PRESENT: no acute distress Respiratory exam: PRESENT: clear to auscultation davin Cardiovascular exam: PRESENT: RRR GI/Abdominal exam: PRESENT: other - Soft, nondistended nontender to palpation. Extremities exam: PRESENT: other - Left lower leg in splint as well as the left hand. No evidence of vascular compromise. Results Impressions: Abdomen/Pelvis CT 07/20/16 18:40 IMPRESSION: There is soft tissue fullness in the presacral space most consistent with a hematoma. No bladder abnormalities are identified. A fracture of the coccyx is identified. A fracture involving the inferior pubic ramus on the right is identified. No other significant posttraumatic changes are identified. Other findings as noted above. Cervical Spine CT 07/20/16 18:40 IMPRESSION: NO ACUTE OR SIGNIFICANT FINDINGS IN THE CERVICAL SPINE. Chest CT 07/20/16 18:40 IMPRESSION: No significant intrathoracic posttraumatic changes are identified. Findings as noted above Chest X-Ray 07/20/16 18:40 IMPRESSION: NO ACUTE RADIOGRAPHIC FINDING IN THE CHEST. Head CT 07/20/16 18:40 IMPRESSION: No significant intracranial abnormalities were identified. A right frontal and right periorbital hematoma is identified. Other findings as noted above Pelvis X-Ray 07/20/16 18:41 IMPRESSION: Fracture of the inferior pubic ramus on the right is identified. No other evidence for fracture is seen Facial Bones CT 07/20/16 19:12 IMPRESSION: No evidence for fracture is seen. Paranasal sinuses are well- aerated without air-fluid levels. A right frontal and right periorbital hematoma is identified. Wrist X-Ray 07/21/16 00:00 IMPRESSION: Fracture of the proximal 1st metacarpal Ankle X-Ray 07/22/16 00:00 IMPRESSION: IMAGE(S) OBTAINED DURING PROCEDURE. Finger X-Ray 07/22/16 00:00 IMPRESSION: IMAGE(S) OBTAINED DURING PROCEDURE. Fluoroscopy 07/22/16 00:00 IMPRESSION: IMAGE(S) OBTAINED DURING PROCEDURE. Assessment & Plan - Diagnosis (1) Trauma Is this a current diagnosis for this admission?: YesPlan: Status post multiple orthopedic injuries. Pubic the ramus and a coccygeal fracture will be managed nonoperatively. No evidence of significant the thoracoabdominal injuries. Status post ORIF of the left ankle injury. Patient stable. Pending psychiatry final disposition to release him from involuntary commitment. Patient will need the home physical therapy. Once psychiatry has released him from involuntary commitment and the home physical therapy can be arranged will plan to discharge the patient home.
[2016-07-27] MEDS: BENZTROPINE MESYLATE 1 MG TABLET PO SCH (22:25)
[2016-07-28] MEDS: OXYCODONE-ACETAMINOPHEN 5-325 MG TABLET PO PRN ×3 (05:02→19:27)
[2016-07-28] MEDS: ENOXAPARIN SODIUM INJ 40 MG/0.4 ML DISP.SYRIN SUBCUT SCH (10:35)
[2016-07-28] MEDS: OLANZAPINE 5 MG TABLET PO SCH ×2 (10:36→23:10)
[2016-07-28] MEDS: DOCUSATE SODIUM 100 MG CAPSULE PO SCH ×2 (10:36→18:52)
[2016-07-28] MEDS: DIVALPROEX SODIUM 250 MG TABLET.DR PO SCH ×2 (10:37→23:11)
[2016-07-28] MEDS: BENZTROPINE MESYLATE 1 MG TABLET PO SCH (23:10)
[2016-07-29] MEDS: ENOXAPARIN SODIUM INJ 40 MG/0.4 ML DISP.SYRIN SUBCUT SCH (09:12)
[2016-07-29] MEDS: OXYCODONE-ACETAMINOPHEN 5-325 MG TABLET PO PRN (09:14)
[2016-07-29] MEDS: OLANZAPINE 5 MG TABLET PO SCH (09:16)
[2016-07-29] MEDS: DOCUSATE SODIUM 100 MG CAPSULE PO SCH ×2 (09:16→18:18)
[2016-07-29] MEDS: DIVALPROEX SODIUM 250 MG TABLET.DR PO SCH (10:05)
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
[2016-07-29 16:05] VITALS: BP 128/65
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
== END 2016-07-29 18:20 | disposition home health service (06) | DRG 493 ==
LOC: ER 18:35 → EH 22:54 → 4S 07-21 01:30 → OBSVTOIN 07-22 11:30
PROVIDERS: ATTEND Surgery
PROC: 0PSQ34Z Reposition Left Metacarpal with Internal Fixation Device, Percutaneous Approach (ICD-10-PCS; 2016-07-22)
PROC: 0QHK04Z Insertion of Internal Fixation Device into Left Fibula, Open Approach (ICD-10-PCS; principal; 2016-07-22 12:00)
PROC: 0QHH04Z Insertion of Internal Fixation Device into Left Tibia, Open Approach (ICD-10-PCS; 2016-07-22 12:00)
DX: S82.842A Displaced bimalleolar fracture of left lower leg, initial encounter for closed fracture (principal); S32.591A Other specified fracture of right pubis, initial encounter for closed fracture; S32.2XXA Fracture of coccyx, initial encounter for closed fracture; S62.222A Displaced Rolando's fracture, left hand, initial encounter for closed fracture; S05.11XA Contusion of eyeball and orbital tissues, right eye, initial encounter; S31.831A Laceration without foreign body of anus, initial encounter; S01.81XA Laceration without foreign body of other part of head, initial encounter; S00.81XA Abrasion of other part of head, initial encounter; S30.810A Abrasion of lower back and pelvis, initial encounter; V48.1XXA Car passenger injured in noncollision transport accident in nontraffic accident, initial encounter; Y92.413 State road as the place of occurrence of the external cause; H11.31 Conjunctival hemorrhage, right eye; F10.129 Alcohol abuse with intoxication, unspecified; Y90.6 Blood alcohol level of 120-199 mg/100 ml; F25.1 Schizoaffective disorder, depressive type; F17.210 Nicotine dependence, cigarettes, uncomplicated
CPT/HCPCS: 01480; 36415; 70450; 70486; 71010; 71260; 72125; 72170; 74177; 80048; 80307; 81001; 83735; 84100; 85025; 85027; 94799; 96361; 96374; 96375; 96376; 99291; C1769; C1894; G0378; J0330; J0690; J1100; J1170; J1650; J2250; J2270; J2405; J2704; J2765; J3010; J3480; J3490; J7120

== ENCOUNTER 2016-08-29 16:13 | Emergency (ER) | payer BC, OTHER ==
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
[2016-08-29] MEDS ORDERED: IBUPROFEN 800 MG TABLET PO ONE (22:08)
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
[2016-08-29 22:16] VITALS: BP 127/82
== END 2016-08-29 22:15 | disposition home or self-care (01) ==
LOC: ER 16:13
DX: Z47.89 Encounter for other orthopedic aftercare (principal); F17.200 Nicotine dependence, unspecified, uncomplicated
CPT/HCPCS: 99283

== ENCOUNTER → 2017-04-19 | Outpatient (CLI) | payer OTHER ==
--- NOTE | 2017-04-19 18:08 | RADIOLOGY REPORT (SQ) ---
EXAM DESCRIPTION: U/S SCROTUM W/DOPPLER COMPLETED DATE/TIME: 04/19/2017 5:43 pm REASON FOR STUDY: TESTICULAR MASS COMPARISON: None. TECHNIQUE: Static and realtime cash scale imaging of the scrotum and testes. Selected color Doppler and spectral images recorded to document blood flow. LIMITATIONS: None. FINDINGS: RIGHT: TESTICLE: Removed at age 14 because of torsion. LEFT: TESTICLE: Normal size, 3.5 x 3.1 x 2.3 cm. Normal echotexture. Normal blood flow. No mass. EPIDIDYMIS: Normal. 1.5 x 0.8 x 0.6 cm. HYDROCELE OR VARICOCELE: No. HERNIA OR EXTRA-TESTICULAR MASS: No. OTHER: No other significant finding. IMPRESSION: NORMAL SCROTAL ULTRASOUND. NO EVIDENCE OF TESTICULAR MASS OR TORSION. TECHNICAL DOCUMENTATION: JOB ID: [id number] [employer]- All Rights Reserved
== END ==
LOC: RAD 17:05
PROVIDERS: ATTEND Urology
DX: N50.9 Disorder of male genital organs, unspecified (principal)
CPT/HCPCS: 76870